=== PATIENT | female | born 1975 | race Caucasian/White ===

== ENCOUNTER → 2025-02-01 09:47 | Outpatient (REF) | payer OTHER, SELFPAY ==
[2025-02-01 12:50] LABS: Hepatitis B Surface Antibody Negative
[2025-02-03 04:07] LABS: Quantiferon Mitogen minus NIL 9.96 IU/mL; Quantiferon NIL 0.04 IU/mL; Quantiferon TB Gold Plus Negative (Negative)
== END ==
LOC: OHS 09:47
PROVIDERS: ATTENDING PHYSICIAN Nurse Practitioner Family
DX: Z23 Encounter for immunization (principal)
CPT/HCPCS: 36415; 86480; 86706; 86787

== ENCOUNTER 2025-02-26 19:46 | Emergency (ER) | payer BC, SELFPAY ==
[2025-02-26 19:50] VITALS: BP 166/83
[2025-02-26 20:24] LABS: % Basophils 0.3 % (0-2); % Eosinophils 0.6 % (0-6); % Immature Granulocytes 0.2 % (0-0.5); % Lymphocytes 8.7 % (20.5-51.1); % Monocytes 3.6 % (1.7-9.3); % Neutrophils 86.6 % (42.2-75.2); Absolute Eosinophils 0.1 10^3/uL (0-0.7); Absolute Lymphocytes 1.2 10^3/uL (1.2-3.4); Absolute Monocytes 0.5 10^3/uL (0.1-0.6); Absolute Neutrophils 11.7 10^3/uL (1.4-6.5); Hematocrit 37.9 % (37.0-47.0); Hemoglobin 11.5 g/dL (12.0-16.0); Mean Corp Hgb Conc. 30.3 g/dL (33.0-37.0); Mean Corpuscular Hgb 24.2 pg (27.0-31.0); Mean Corpuscular Volume 79.8 fL (81.0-99.0); Mean Platelet Volume 9.4 fL (7.4-10.4); Nucleated Red Blood Cells % 0 %; Platelet Count 332 10^3/uL (130-400); Red Blood Cell Count 4.75 10^6/uL (4.20-5.40); Red Cell Dist. Width 15.9 % (11.5-14.5); White Blood Cell Count 13.5 10^3/uL (4.8-10.8)
[2025-02-26 20:40] LABS: ALT (SGPT) 25 U/L (0-35); AST (SGOT) 24 U/L (14-36); Albumin 4.4 g/dl (3.5-5.0); Alkaline Phosphatase 72 U/L (38-126); Blood Urea Nitrogen 12 mg/dl (7-17); Calcium 9.3 mg/dl (8.4-10.2); Carbon Dioxide 26 mmol/L (22-30); Chloride 103 mmol/L (98-107); Glucose 156 mg/dl (70-99); Potassium 4.1 mmol/L (3.5-5.1); Sodium 138 mmol/L (135-145); Total Bilirubin 0.6 mg/dl (0.2-1.3); Total Protein 6.7 g/dl (6.3-8.2); eGFR > 60.00
--- NOTE | 2025-02-26 23:34 | ED.GENMED ---
History of Present Illness
General
Chief Complaint: Rectal Bleeding
Time Seen by Provider: 02/26/25 22:32
History of Present Illness
History of Present Illness:
49-year-old female presenting to the emergency department for bright red blood per rectum. Patient reports that a few hours prior to arrival, started to have some lower abdominal cramping with diarrhea which was normal in color. Few episodes
later, develop bright red blood per rectum. Denies any history of hemorrhoids. Notes some mild discomfort to the lower abdomen. Denies ever having this issue in the past and has had colonoscopies previously, normal. Denies fever, chest pain,
difficulty breathing. Denies eating anything unusual prior to symptom onset. Denies sick contacts. Denies urinary complaints. Denies additional acute medical complaints
Phy Exam
Physical Exam
Physical Exam:
General: Well-appearing, no clinical signs of dehydration, nontoxic and in no acute distress
HEENT: protecting airway
Neck: appears supple
CV: Normal heart rate, regular rhythm
Resp: No accessory muscle use, no increased work of breathing, lungs clear to auscultation bilaterally
Abd: Soft and non-distended, mild tenderness to lower abdomen without rebound or guarding
Extremities: No deformities, no swelling
Neuro: alert, no focal neurologic deficit
: deferred
Rectal: deferred
Psych: Normal affect
Skin: Intact
Course
Orders/Labs/Results
Orders:
Orders
02/26/25 20:03
Complete Blood Count/With Diff Urgent
Comprehensive Metabolic Panel Urgent
02/26/25 23:15
Stool Culture Urgent
UMA Source: Feces/Stool
Specimen Description:
02/26/25 23:28
HCG, Urine Qualitative Screen Urgent
Date Specimen was Collected: 02/27/25
Time Specimen was Collected: 00:00
Urinalysis Reflex To Culture Urgent
Date Specimen was Collected: 02/27/25
Time Specimen was Collected: 00:00
02/27/25
CT Abd/pelvis W Iv Cont Urgent
Reason For Exam: lower abdominal pain, bloody diarrhea
Abnormal Lab Results
02/26/25
20:03
WBC 13.5 H 10^3/uL
(4.8-10.8)
Hgb 11.5 L g/dL
(12.0-16.0)
MCV 79.8 L fL
(81.0-99.0)
MCH 24.2 L pg
(27.0-31.0)
MCHC 30.3 L g/dL
(33.0-37.0)
RDW 15.9 H %
(11.5-14.5)
Absolute Neuts (auto) 11.7 H 10^3/uL
(1.4-6.5)
Neutrophils % 86.6 H %
(42.2-75.2)
Lymphocytes % 8.7 L %
(20.5-51.1)
Glucose 156 H mg/dl
(70-99)
02/26/25 20:03
02/26/25 20:03
Vital Signs
Initial and Last Documented VS:
Initial Vital Signs
Temp Pulse Resp BP Pulse Ox
99.0 F 86 16 166/83 98
02/26/25 19:50 02/26/25 19:50 02/26/25 19:50 02/26/25 19:50 02/26/25 19:50
Last Documented Vital Signs
Temp Pulse Resp BP Pulse Ox
98.3 F 74 20 127/65 97
02/27/25 01:27 02/27/25 01:48 02/27/25 01:48 02/27/25 01:48 02/27/25 01:48
MDM/Problems Addressed
MDM/Problems Addressed:
49-year-old female presenting for bright red blood per rectum. Vital signs are significant for mild hypertension.
On exam patient is resting comfortably, no acute distress or discomfort. Patient has multiple episodes of bright red blood per rectum. Symptoms are proceeded with abdominal cramping. Ultimately suspect viral enteritis, possibly foodborne.
Patient hemodynamically stable with lower suspicion for any GI hemorrhage. Suspect possible episode of diverticulosis versus diverticulitis in setting of pain. Labs obtained prior to my assessment, mild leukocytosis. Will plan for CT imaging to
ensure no acute process. Otherwise hemoglobin within normal limits.
02:00-CT is consistent with colitis to the descending colon. Patient has had no further episodes of diarrhea. She remains hemodynamically stable. Feel stable for discharge and continued outpatient supportive therapy. Advised that she follow-up
with her GI doctor. Strict return precautions communicated and patient verbalized understanding
*Critical Care Note
Total Time (30-74mins, 75-104mins- exclusive of procedures): Not Applicable
ED Attending Note
-
Portions of this chart may have been created with voice recognition software.� Occasional wrong word or��sound alike� substitutions may have occurred due to the inherent limitations of voice recognition software.
Discharge Plan
Departure
Prescriptions:
No Action
dextroamphetamine-amphetamine [Adderall] 15 mg Tablet
15 mg PO DAILY
gabapentin 300 mg Capsule
300 mg PO HS
epinephrine [EpiPen] 0.3 mg/0.3 mL Auto-Injector
1 ml IM DAILY PRN (Reason: allergic reaction)
Rx Instructions:
allergic reaction
cholecalciferol (vitamin D3) [Vitamin D3] 10 mcg (400 unit) Capsule
1 mcg PO DAILY
escitalopram oxalate [Lexapro] 20 mg Tablet
20 mg PO DAILY
ferrous sulfate 28 mg iron Tablet
28 mg PO DAILY
Kaopectate (bismuth subsalicy)
2 tab PO DAILY PRN (Reason: diarrhea)
albuterol
2 inh inhalation Q4H
gabapentin
200 mg PO AMHS
Referrals:
Maegan Linton MD [Family Provider] -
Interventions
Interventions:
*Risk Screen - Suicide Last Done: 02/26/25 19:50
*General Assessment Last Done: 02/26/25 19:50
*Neglect/Abuse Screening Last Done: 02/26/25 19:50
*ED- Fall Risk Assessment Last Done: 02/26/25 19:50
*ED COVID-19 Vaccine History Last Done: 02/26/25 19:50
FL-Uosqya-Bmbzjgofnq Assessment Last Done: 02/26/25 23:15
ED- Cardiac Assessment Last Done: 02/26/25 23:15
ED- Pulmonary Assessment Last Done: 02/26/25 23:15
Discharge Date and Time
Print Language: SURINAMESE
[2025-02-27] VITALS: BP 139/82
[2025-02-27 00:10] LABS: Urine Albumin Negative (Neg - Trace); Urine Bilirubin Negative (Negative); Urine Character Clear (Clear); Urine Color Yellow; Urine Glucose Negative (Negative); Urine Ketone Negative (Negative); Urine Leukocyte Negative (Negative); Urine Nitrite Negative (Negative); Urine Occult Blood Negative (Negative); Urine Specific Gravity 1.005 (<1.030); Urine Urobilinogen Negative (Neg - 1+); Urine pH 6.5 (5.0-9.0)
[2025-02-27 00:11] LABS: HCG, Urine Qualitative Screen Negative
[2025-02-27 00:33] VITALS: BP 135/72
[2025-02-27 01:27] VITALS: BP 130/59
[2025-02-27 01:48] VITALS: BP 127/65
== END 2025-02-27 02:45 | disposition home or self-care (01) ==
LOC: EMR 19:46
PROVIDERS: Emergency Medicine; EMERGENCY PHYSICIAN Student in an Organized Health Care Education/Training Program; FAMILY PHYSICIAN Internal Medicine
DX: K52.9 Noninfective gastroenteritis and colitis, unspecified (principal); K92.1 Melena; R03.0 Elevated blood-pressure reading, without diagnosis of hypertension
CPT/HCPCS: 99285; 74177; 80053; 81003; 81025; 85025; Q9967